=== PATIENT | male | born 1940 | race Hispanic/Latino ===

== ENCOUNTER 2022-03-03 14:42 | Emergency (ER) | payer MEDICARE ==
[2022-03-03] MEDS ORDERED: Boostrix 0.5 ML (Tdap) VIAL ONE (15:37)
== END 2022-03-03 16:00 | disposition home or self-care (01) ==
LOC: MADERS 14:42
DX: S61.032A Puncture wound without foreign body of left thumb without damage to nail, initial encounter (principal); I10 Essential (primary) hypertension; E78.5 Hyperlipidemia, unspecified; E78.00 Pure hypercholesterolemia, unspecified; Z79.899 Other long term (current) drug therapy; X58.XXXA Exposure to other specified factors, initial encounter; Y93.H2 Activity, gardening and landscaping; Y92.007 Garden or yard of unspecified non-institutional (private) residence as the place of occurrence of the external cause; Z23 Encounter for immunization
CPT/HCPCS: 90471; 90715

== ENCOUNTER 2023-05-25 15:06 | Outpatient (CLI) | payer MEDICARE | END 2023-05-25 15:07 | disposition home or self-care (01) | LOC: MADRAD 15:06 | PROVIDERS: ATTEND Family Medicine | DX: M54.50 Low back pain, unspecified (principal); M47.816 Spondylosis without myelopathy or radiculopathy, lumbar region | CPT/HCPCS: 72110 ==

== ENCOUNTER 2023-06-08 11:47 | Emergency (ER) | payer MEDICARE ==
[2023-06-08] MEDS ORDERED: Aspirin Chewable 81 MG TAB ONE (12:03)
[2023-06-08 12:18] LABS: #Basophils 0.1 thou/uL (0.0-0.2); #Eosinphils 0.3 thou/uL (0.0-0.7); #Lymphocytes 0.9 thou/uL (1.20-3.40); #Monocytes 0.4 thou/uL (0.11-0.59); #Neutrophils 4.3 thou/uL (1.40-6.50); %Basophils 0.9 % (0.0-1.0); %Eosinophils 5.1 % (0.0-10.0); %Lymphocytes 14.6 % (21.0-51.0); %Monocytes 6.3 % (0.0-10.0); %Neutrophils 73.1 % (42.0-75.0); Hematocrit 39.6 % (42.0-52.0); Hemoglobin 12.5 g/dL (14.0-18.0); Mean Corpuscular HGB CONC 31.7 g/dL (32.0-36.0); Mean Corpuscular Hemoglobin 27.5 pg (27.0-31.0); Mean Corpuscular Volume 86.8 fl (78.0-98.0); Mean Platelet Volume 8.8 fL (7.4-10.4); Platelet Count 179 10x3/uL (130-400); RBC Distribution Width 14.2 % (11.5-14.5); Red Blood Cell (RBC) Count 4.56 mill/uL (4.70-6.10); White Blood Cell (WBC) Count 5.8 10x3/uL (4.8-10.8)
[2023-06-08 12:33] LABS: ALT (SGPT) 26 U/L (8-55); AST (SGOT) 27 U/L (5-34); Albumin 3.9 g/dL (3.4-4.8); Alkaline Phosphatase 151 U/L (40-110); Anion Gap 16 mmol/L (10-20); BUN (Urea Nitrogen) 22 mg/dL (8.4-25.7); Bilirubin, Total 0.3 mg/dL (0.2-1.2); Calc. Creatinine Clearance 0 mL/min (70-130); Calcium 10.3 mg/dL (7.8-10.44); Carbon Dioxide 26 mmol/L (23-31); Chloride 103 mmol/L (98-107); Estimated GFR 67; Globulin 3.5 g/dL (2.4-3.5); Glucose 103 mg/dL (83-110); Magnesium 1.9 mg/dL (1.6-2.6); Potassium 3.9 mmol/L (3.5-5.1); Protein, Total 7.4 g/dL (5.8-8.1); Sodium 141 mmol/L (136-145)
[2023-06-08 12:39] LABS: Troponin I Less than 0.010 ng/mL (< 0.028)
[2023-06-08 15:08] LABS: Troponin I Less than 0.010 ng/mL (< 0.028)
[2023-06-08 20:04] LABS: Troponin I 0.012 ng/mL (< 0.028)
== END 2023-06-08 20:01 | disposition short-term general hospital (02) ==
LOC: MADERS 11:47
DX: I20.9 Angina pectoris, unspecified (principal); E78.00 Pure hypercholesterolemia, unspecified; I10 Essential (primary) hypertension; Z79.899 Other long term (current) drug therapy
CPT/HCPCS: 36415; 71045; 80053; 83735; 83880; 84145; 84484; 85025; 93005